=== PATIENT | female | born 1965 | race Caucasian/White ===

== ENCOUNTER → 2021-03-05 09:37 | Outpatient (CLI) | payer BC, SELFPAY ==
--- NOTE | ~2021-03-05 | XR_ITS ---
EXAMINATION: XR chest 2V 03/05/2021 09:58 INDICATION: Shortness of breath PROCEDURE: 2 view chest COMPARISON: No prior studies for comparison. FINDINGS: The lungs are clear. The cardiomediastinal silhouette is within normal limits. There are no pleural effusions. There is no pneumothorax suspected. IMPRESSION: 1: NO ACUTE CARDIOPULMONARY DISEASE. Reviewed, dictated and finalized at location B.
== END ==
PROVIDERS: Visit Provider Physician Assistant
DX: R06.02 Shortness of breath (principal)
CPT/HCPCS: 71046

== ENCOUNTER → 2021-09-07 14:52 | Outpatient (REF) | payer BC, SELFPAY | LOC: ANHLAB 14:52 | PROVIDERS: Visit Provider Nurse Practitioner | DX: L72.0 Epidermal cyst (principal) | CPT/HCPCS: 88304 ==

== ENCOUNTER → 2022-08-25 11:08 | Outpatient (CLI) | payer BC, SELFPAY ==
--- NOTE | ~2022-08-25 | MM_ITS ---
EXAMINATION: MM screening tim BI w baljinder HISTORY: Screening TECHNIQUE: Craniocaudal and mediolateral oblique 3-D tomosynthesis images were obtained and synthetic 2-D images were generated. CAD analysis was submitted and interpreted. COMPARISON: 07/18/2018 BREAST PARENCHYMAL COMPOSITION: The breasts are heterogeneously dense, which may obscure small masses . FINDINGS: There is no evidence of suspicious mass, calcification, or architectural distortion to sugg est malignancy in either breast. There has been no suspicious interval change. IMPRESSION: 1. No mammographic evidence of malignancy. 2. Recommend routine screening mammography in one year. BI-RADS Category 1: Negative Reviewed, dictated and finalized at location B. [employer]
== END ==
PROVIDERS: PCP Family Medicine; Visit Provider Nurse Practitioner Obstetrics & Gynecology
DX: Z12.31 Encounter for screening mammogram for malignant neoplasm of breast (principal)
CPT/HCPCS: 77063; 77067

== ENCOUNTER → 2023-06-21 09:53 | Outpatient (CLI) | payer OTHER, SELFPAY ==
--- NOTE | ~2023-06-21 | US_ITS ---
US abdomen limited INDICATION: Abdomen pain. Chronic diarrhea. Pain. PROCEDURE: Realtime right upper abdominal ultrasound. COMPARISON: No prior studies for comparison. FINDINGS: The pancreas is normal without focal mass or pancreatic ductal dilation. Liver echotexture is normal without focal mass or intrahepatic biliary dilatation. There is normal directional flow i n the portal vein. The gallbladder is normal without stones, gallbladder wall thickening or pericholecystic fluid. Comm on bile duct measures 3 mm. No sonographic Hall's sign. IMPRESSION: 1: Normal limited abdominal ultrasound. Reviewed, dictated and finalized at location L.
== END ==
PROVIDERS: PCP Physician Assistant; Visit Provider Physician Assistant
DX: R10.9 Unspecified abdominal pain (principal)
CPT/HCPCS: 76705

== ENCOUNTER 2024-10-29 11:49 | Outpatient (CLI) | payer OTHER, SELFPAY ==
[2024-10-29 12:39] LABS: Influenza A QL RT-PCR Negative (Negative); Influenza B QL RT-PCR Negative (Negative); RSV RNA, RT-PCR Negative (Negative); SARS-CoV-2 RNA PCR Negative (Negative)
== END 2024-10-29 11:50 | disposition home or self-care (01) ==
LOC: ANHLAB 11:50
PROVIDERS: PCP Family Medicine; Visit Provider Family Medicine
DX: J06.9 Acute upper respiratory infection, unspecified (principal)
CPT/HCPCS: 87637